=== PATIENT | male | born 2000 | race Caucasian/White ===

== ENCOUNTER 2022-12-19 12:16 | Emergency (ER) | payer MEDICAID, SELFPAY ==
[2022-12-19 12:20] VITALS: BP 132/80; PULSE 85; RESP 20; TEMP 36.8; O2SAT 100
--- NOTE | 2022-12-19 13:14 | W.ED.GENAD ---
Discharge Plan Disposition Patient Disposition: Home Discharge Details Clinical Impression: Facial laceration Primary Care Provider: None,None ED Provider: Darlene Lopez Home Meds and New Rx's Prescriptions: Continued levothyroxine 25 mcg Tablet 25 mcg PO DAILY Discharge Instructions Instructions: Facial Laceration (ED) Additional Instructions: Keep wound clean and dry Sutures removed in 5-6 days Please return with spreading redness, fever, worsening pain Giving you 2 days off of work, you may use this as needed Motrin and Tylenol as needed for pain Stand Alone Forms: Work Release Discharge Data Discharge Date/Time-TO BE ENTERED AT DEPARTURE: 12/19/22 13:51 Medical Decision Making GCS 15, alert and oriented patient with laceration, facial accidental injury from child's Tolerated suture placement without incident, immunizations up-to-date No clinical signs or symptoms consistent with significant head trauma Return precautions reviewed and patient expressed understanding, suture removal in 5 days recommended Medical Records Medical records reviewed: Yes I reviewed the patient's medical records. Lab Data Lab results reviewed: Yes I reviewed the patient's lab results. HPI General Date/Time Provider Initiated Documentation: 12/19/22 12:44. HPI Narrative: This 22-year-old female presents with report of laceration after her son threw a sharp metal toy at the corner of her head. She received a laceration. She states her tetanus is up-to-date. Denies chance or vision change. Denies headache but does have some lightheadedness. She feels anxious. Denies any additional complaints or history of coagulopathy. Related Data Home Medications Medication Instructions Recorded Confirmed levothyroxine 25 mcg tablet 25 mcg PO DAILY 12/19/22 12/19/22 Allergies Allergy/AdvReac Type Severity Reaction Status Date / Time Penicillins Allergy Intermediate Skin Rash Unverified 12/19/22 12:24 General Stated Complaint: Laceration SHANNAN: 4 PFSH All Active Problems (Updated 12/19/22 @ 13:18 by ANA Mcfarlane) Facial laceration (Acute) Social History Smoking/Tobacco Use Status: Never Smoking risk assessment performed?: Yes Alcohol Intake: never Drug use: Never Substance use type: does not use Do you feel safe at home: Yes Do you feel safe in your relationship?: Yes Exam Const General: cooperative, comfortable and no acute distress [facility] Head images: 1. Eyes Pupils: PERRL EOM: EOM intact bilaterally Skin General skin exam: no rashes or lesions noted Neuro General: patient alert and patient oriented x3 Cranial Nerves: CN's II-XI intact bilaterally and tongue midline Cognition: normal cognition Speech: speech normal Gait: normal gait Motor: strength 5/5 throughout Sensory Exam: no sensory deficits noted Other: GCS 15 Course Vital Signs Vital signs: Vital Signs Temperature 36.8 C 12/19/22 12:20 Pulse 85 12/19/22 12:20 Respiratory Rate 20 12/19/22 12:20 Blood Pressure 132/80 12/19/22 12:20 Pulse Oximetry 100 12/19/22 12:20 Temperature 36.8 C 12/19/22 12:20 Temperature Source Oral 12/19/22 12:20 Pulse 85 12/19/22 12:20 Respiratory Rate 20 12/19/22 12:20 Respiratory Effort Normal, Non-Labored 12/19/22 12:25 Blood Pressure 132/80 12/19/22 12:20 Blood Pressure Position Sitting 12/19/22 12:20 Pulse Oximetry 100 12/19/22 12:20 Oxygen Delivery Method Room Air 12/19/22 12:20 Oxygen Flow Rate 0 12/19/22 12:20 Pain Level 4 12/19/22 12:20 Procedures Laceration Laceration 1: Site: scalp Side (If applicable): right Size (cm): 1 Description: irregular Depth: simple, single layer Local Anesthetic: Lidocaine 1% Amount of anesthesia used (mL): 7 Skin layer closed with: nylon and vicryl Size (cm): 4-0
== END 2022-12-19 13:51 | disposition home or self-care (01) ==
PROVIDERS: Emergency Provider Physician Assistant
DX: S01.01XA Laceration without foreign body of scalp, initial encounter (principal); W20.8XXA Other cause of strike by thrown, projected or falling object, initial encounter
CPT/HCPCS: 12011

== ENCOUNTER 2024-01-29 10:36 | Emergency (ER) | payer SELFPAY ==
[2024-01-29 10:39] VITALS: BP 177/80; PULSE 76; RESP 18; TEMP 37.1; O2SAT 100
[2024-01-29 11:15] LABS: Bilirubin Negative (Negative); Blood Negative (Negative); Clarity Clear (Clear); Glucose Negative (Negative); Ketones Negative (Negative); Leukocyte Esterase Negative (Negative); Nitrite Negative (Negative); Urobilinogen 0.2 mg/dL (Up to 0.2)
[2024-01-29 11:28] VITALS: RESP 14
[2024-01-29] MEDS: methylPREDNISolone SUCC 125 MG VIAL IVP (12:08)
[2024-01-29] MEDS: Normal Saline 1,000 ML 1000 ML IV (12:08)
[2024-01-29] MEDS: Ondansetron 4 MG/2 ML VIAL IVP (12:09)
[2024-01-29] MEDS: Prochlorperazine 10 MG/2 ML VIAL IVP (12:09)
[2024-01-29] MEDS: diphenhydrAMINE 50 MG/ML VIAL 25 MG IVP (12:09)
[2024-01-29] MEDS: Acetaminophen 500 MG TAB 1000 MG PO (12:09)
[2024-01-29 12:12] LABS: Abs Immature Grans 0.02 10^3/uL (0.0-0.06); Absolute Basophil Count 0.04 10^3/uL (0.0-0.2); Absolute Monocyte Count 0.55 10^3/uL (0.1-0.8); Absolute Neutrophil Count 5.21 10^3/uL (1.2-6.7); Basophils % 0.5 %; Eosinophils % 2.6 %; HCT 42.8 % (36.0-46.0); HGB 14.3 g/dL (11.2-15.7); Immature Grans % 0.3 %; MCHC 33.4 % (32.0-36.0); MCV 93 fL (80-95); MPV 11.3 fL (8.0-11.0); Neutrophils % 66.6 %; Platelet Count 249 10^3/uL (130-400); RBC 4.62 10^6/uL (3.93-5.22); RDW 13.5 % (11.7-14.6); RDW-SD 46.2 fL; WBC 7.82 10^3/uL (4.4-10.8)
--- NOTE | 2024-01-29 12:32 | DI.CT_ITS ---
Exam(s) CT HEAD WO EXAM: CT HEAD WO CLINICAL HISTORY: vomiting, headache, eval for bleed or mass. TECHNIQUE: Imaging Protocol: Axial computed tomography images with coronal and sagittal reformatted images were created and reviewed COMPARISON: No exams were available for comparison FINDINGS: Ventricles and Extra axial spaces: Normal in size and morphology for the patient's age. Hemorrhage: None. Cerebral parenchyma: No evidence of acute infarct or mass. Midline shift: None. Brainstem/Cerebellum: Normal. Calvarium: Normal. Visualized Paranasal sinuses:Clear. Mastoids: Clear. Soft Tissues: Unremarkable. ORBITS: Unremarkable. PITUITARY: Not enlarged. IMPRESSION: No acute intracranial process. RADIATION DOSE DELIVERED: 848.8mGy.cm Total DLP DATA REPOSITORY: All CT scans at this facility are submitted to the National Radiology Data Registry (NRDR) Dose Index Registry (DIR) with the [employer] (A[employer]). RADIATION OPTIMIZATION: All CT scans at this facility use at least one of these dose optimization te chniques: automated exposure control; mA and/or kV adjustment per patient size (includes targeted exa ms where dose is matched to clinical indication); or iterative reconstruction.
[2024-01-29 12:33] LABS: ALT 25 U/L (14-59); AST 14 U/L (15-37); Albumin 3.6 g/dL (3.4-5.0); Alkaline Phosphatase 87 U/L (46-116); Anion Gap 7.4 mmol/L (3-11); BUN 10 mg/dL (7-18); Bilirubin, Total 0.3 mg/dL (0.2-1.0); CO2 27.6 mmol/L (21.0-32.0); CREATININE 0.7 mg/dL (0.55-1.02); Calcium 9.5 mg/dL (8.5-10.1); Chloride 107 mmol/L (98-107); Estimated GFR 124.55 (mL/min/1.73m2); Glucose 93 mg/dL (74-106); Lipase 21 U/L (16-77); Potassium 3.9 mmol/L (3.5-5.1); Sodium 142 mmol/L (136-145); Total Protein 7.2 g/dL (6.4-8.2)
--- NOTE | 2024-01-29 13:39 | W.ED.GENAD ---
Discharge Plan Disposition Patient Disposition: Home Condition: Good Discharge Details Clinical Impression: Vertigo, Dental infection, Nausea & vomiting Primary Care Provider: Unknown,Unknown ED Provider: Tirso Carpenter Home Meds and New Rx's Prescriptions: New ondansetron 4 mg tablet,disintegrating 4 mg PO Q8H Qty: 20 0RF meclizine 25 mg tablet 25 mg PO DAILY PRNQty: 20 0RF clindamycin HCl 150 mg capsule 450 mg PO TID 7 Days Qty: 63 0RF No Action levothyroxine 25 mcg Tablet 25 mcg PO DAILY Discharge Instructions Instructions: Dental Abscess (ED), Vertigo (ED), Acute Nausea and Vomiting (ED) Additional Instructions: At this time you have evidence of peripheral vertigo. Your CT scan is negative for any signs of stroke. Please take the meclizine to help with the dizziness. Please take the Zofran as needed for nausea. He also have a mild dental infection. The definitive treatment for this is dental surgical management. Please take the antibiotic in the meantime to manage the infection. If you notice any worsening of your symptoms, or any new symptoms such as vomiting, diarrhea, fever, chills, shortness of breath, chest pain, numbness, weakness, or fainting , please return immediately to the emergency department for reevaluation. Please follow up with your primary care provider as soon as possible for reassessment and reevaluation. As always, it was a pleasure participating in your medical care today. HPI General Date/Time Provider Initiated Documentation: 01/29/24 11:15. HPI Narrative: 23-year-old female with a past medical history of known right upper posterior dental infection, presents today for evaluation of mild headache, mild dizziness and lightheadedness, mild nausea and occasional vomiting. Patient states that symptoms been going on for the last 2 to 3 weeks. About 2 weeks ago she did fall and hit her head hit her right brow which developed a black eye. She has also been having pain in her right upper tooth which has been persistent but she has not been able to see a dentist. 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 She has had a concussion. She denies any significant vision changes otherwise. She denies any fever or chills. She does feel slightly dehydrated secondary to the intermittent daily vomiting. She denies any numbness or tingling. No other complaints at this time. No abdominal pain or epigastric discomfort. No other complaints at this time. She does admit to ringing in her left ear which has been somewhat persistent over the last few weeks. Related Data Home Medications Medication Instructions Recorded Confirmed levothyroxine 25 mcg tablet 25 mcg PO DAILY 12/19/22 01/29/24 clindamycin HCl 150 mg capsule 450 mg (3 x 150 mg) PO TID 7 days 01/29/24 #63 caps meclizine 25 mg tablet 25 mg PO DAILY PRN #20 tabs 01/29/24 ondansetron 4 mg disintegrating 4 mg PO Q8H #20 tabs 01/29/24 tablet Previous Rx's Medication Instructions Recorded clindamycin HCl 150 mg capsule 450 mg (3 x 150 mg) PO TID 7 days 01/29/24 #63 caps meclizine 25 mg tablet 25 mg PO DAILY PRN #20 tabs 01/29/24 ondansetron 4 mg disintegrating 4 mg PO Q8H #20 tabs 01/29/24 tablet Allergies Allergy/AdvReac Type Severity Reaction Status Date / Time Penicillins Allergy Intermediate Skin Rash Unverified 01/29/24 10:42 vitamin c Allergy Severe Swelling/Ed Uncoded 01/29/24 10:42 dianne General Stated Complaint: Dizzy/Sync SHANNAN: 3 Review of Systems All systems reviewed & are unremarkable except as noted in HPI and below Exam Narrative Exam Narrative: 1.Const: Well-nourished, Well-developed, appearing stated age 2.Eyes: PERRL, no conjunctival injection, and symmetrical lids. 3.ENT: Atraumatic external nose and ears. Dry MM. Neck: Symmetric, trachea midline, No thyromegaly. Patient demonstrates good movement of cervical neck. There is no nuchal rigidity, no nuchal tenderness. Patient is able to flex the neck without any difficulty or significant pain. Negative Kernig's and Brudzinski sign. Ears demonstrate no evidence of effusion, otitis media, or other abnormality. 4.CVS: +S1/S2, No murmurs or gallops. Peripheral pulses 2+ and equal in all extremities. Brisk capillary refill in all extremities. 5.RESP: Unlabored respiratory effort. Clear to auscultation bilaterally. No wheezes rales or rhonchi 6.GI: Soft, Nontender/Nondistended, No hepatosplenomegaly. No guarding or rebound. 7.MSK: Normocephalic/Atraumatic, Extremities w/o deformity or ttp No cyanosis or clubbing, Normal movement of all extremities 8.Skin: Warm, Dry. No rashes or lesions. 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 Sensation grossly intact, no focal neurologic deficits. All 6 cardinal planes of vision are fully intact. No evidence of rotatory or vertical nystagmus. The patient demonstrated a normal [id number]-mowm-vnrxgw, good dexterity. There was no evidence of dysdiadochokinesia. Patient was able to ambulate without difficulty. There was no wide-based gait. Romberg testing was normal. Zwzn-[id number]-wqik testing was normal. Sensation was intact bilaterally as well as muscle strength bilaterally for all extremities. Patient was able to verbalize butter cup with no slurring, or miss pronunciation. 10.Psych: (AAO) x3. Appropriate mood and affect Course Vital Signs Vital signs: Vital Signs Temperature 37.1 C 01/29/24 10:39 Pulse 76 01/29/24 10:39 Respiratory Rate 18 01/29/24 10:39 Blood Pressure 177/80 H 01/29/24 10:39 Pulse Oximetry 100 01/29/24 10:39 Temperature 37.1 C 01/29/24 10:39 Pulse 76 01/29/24 10:39 Respiratory Rate 14 01/29/24 11:28 Respiratory Effort Normal, Non-Labored 01/29/24 11:28 Respiratory Depth Normal 01/29/24 11:28 Respiratory Pattern Normal 01/29/24 11:28 Blood Pressure 177/80 H 01/29/24 10:39 Blood Pressure Position Sitting 01/29/24 10:39 Pulse Oximetry 100 01/29/24 10:39 Oxygen Delivery Method Room Air 01/29/24 10:39 Oxygen Flow Rate 0 01/29/24 10:39 Lab/Test Results Lab/Test Results: Laboratory Tests Range/Units 01/29/24 01/29/24 11:03 11:58 WBC (4.4-10.8) 10^3/uL 7.82 RBC (3.93-5.22) 10^6/uL 4.62 Hgb (11.2-15.7) g/dL 14.3 Hct (36.0-46.0) % 42.8 MCV (80-95) fL 93 MCH (27.0-33.0) pg 31.0 MCHC (32.0-36.0) % 33.4 RDW (11.7-14.6) % 13.5 Plt Count (130-400) 10^3/uL 249 MPV (8.0-11.0) fL 11.3 H Immature Gran % % 0.3 Neutrophils % % 66.6 Lymphocytes % % 23.0 Monocytes % % 7.0 Eosinophils % % 2.6 Basophils % % 0.5 Nucleated RBC % (0.0-0.3) % 0.0 Absolute Neutrophils (1.2-6.7) 10^3/uL 5.21 Absolute Lymphocytes (1.2-3.4) 10^3/uL 1.80 Absolute Monocytes (0.1-0.8) 10^3/uL 0.55 Absolute Eosinophils (0.0-0.7) 10^3/uL 0.20 Absolute Basophils (0.0-0.2) 10^3/uL 0.04 Sodium (136-145) mmol/L 142 Potassium (3.5-5.1) mmol/L 3.9 Chloride (98-107) mmol/L 107 Carbon Dioxide (21.0-32.0) mmol/L 27.6 Anion Gap (3-11) mmol/L 7.4 BUN (7-18) mg/dL 10 Creatinine (0.55-1.02) mg/dL 0.7 Est GFR (CKD-EPI 2020) (mL/min/1.73m2) 124.55 Glucose (74-106) mg/dL 93 Calcium (8.5-10.1) mg/dL 9.5 Total Bilirubin (0.2-1.0) mg/dL 0.3 AST (15-37) U/L 14 L ALT (14-59) U/L 25 Alkaline Phosphatase (46-116) U/L 87 Total Protein (6.4-8.2) g/dL 7.2 Albumin (3.4-5.0) g/dL 3.6 Lipase (16-77) U/L 21 Urine Color (Yellow) Yellow Urine Clarity (Clear) Clear Urine pH (5-8) 7.0 Ur Specific [place] (1.005-1.025) 1.020 Urine Protein (Neg-Trace) mg/dL Negative Urine Ketones (Negative) mg/dL Negative Urine Blood (Negative) Negative Urine Nitrite (Negative) Negative Urine Bilirubin (Negative) Negative Urine Urobilinogen (Up to 0.2) mg/dL 0.2 Ur Leukocyte Esterase (Negative) Negative Urine Glucose (Negative) mg/dL Negative POC- Test(urine) Negative Medical Decision Making 23-year-old female with a past medical history of known right upper posterior dental infection, presents today for evaluation of mild headache, mild dizziness and lightheadedness, mild nausea and occasional vomiting. Patient states that symptoms been going on for the last 2 to 3 weeks. About 2 weeks ago she did fall and hit her head hit her right brow which developed a black eye. She has also been having pain in her right upper tooth which has been persistent but she has not been able to see a dentist. 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 She has had a concussion. She denies any significant vision changes otherwise. She denies any fever or chills. She does feel slightly dehydrated secondary to the intermittent daily vomiting. She denies any numbness or tingling. No other complaints at this time. No abdominal pain or epigastric discomfort. No other complaints at this time. She does admit to ringing in her left ear which has been somewhat persistent over the last few weeks. Exam demonstrates well-appearing female, dry mucous membranes though, no neurologic deficits. Right upper molar demonstrates evidence of dental carry, no periapical abscess. No evidence of Ludewig's angina, oropharyngeal compromise. No pain at McBurney's point, negative Cam sign, nonsurgical abdomen. Differential is broad, but includes subdural hematoma, brain mass, more likely viral etiology, peripheral vertigo, M?ni?re's, gastroenteritis, migraine headache, or pancreatitis. Will rehydrate the patient, give a GI cocktail, rehydrate, check for these concerning etiologies, get a CT scan of the head, monitor closely and reassess. Symptoms at this time appear clinically inconsistent with meningitis, encephalitis, or acute surgical etiology. 2 PM Laboratory workup has returned, normal electrolytes, no white count bandemia or left shift. CT scan of the head negative for acute process. Patient's nausea has notably improved, she feels well-hydrated. She still has mild dizziness but shows no signs of ataxia imbalance or cerebellar symptoms consistent with cerebellar stroke. I suspect patient has mild peripheral vertigo as a current cause of her symptomatology. Patient feels well and is requesting discharge home. I do feel that this is reasonable. We will give meclizine for dizziness, because of the penicillin allergy we will give clindamycin for the dental issue. Will recommend close follow-up with dentist. With no evidence of tumor or mass stroke or other abnormality on CT imaging, I do not see an emergent indication at this time for MRI. Discussed red flags for which to return. I have extensively reviewed the treatment plan and discharge instructions with the patient and their family. I have addressed all patient concerns at this time. The patient and family was made aware of what symptoms to monitor for that would warrant a return to the emergency department. Discussed the plan with the patient and family, they demonstrate verbal understanding and agreement with our assessment and plan at this time. The documentation in this chart was dictated using [employer] dictation software. Please excuse any dictation errors. FINDINGS: Ventricles and Extra axial spaces: Normal in size and morphology for the patient's age. Hemorrhage: None. Cerebral parenchyma: No evidence of acute infarct or mass. Midline shift: None. Brainstem/Cerebellum: Normal. Calvarium: Normal. Visualized Paranasal sinuses:Clear. Mastoids: Clear. Soft Tissues: Unremarkable. ORBITS: Unremarkable. PITUITARY: Not enlarged. IMPRESSION: No acute intracranial process. Quality:SDOH Health Related Social Needs: No Data to Display PFSH All Active Problems Nausea & vomiting (Acute) Dental infection (Acute) Vertigo (Acute) Social History Smoking/Tobacco Use Status: Former Tobacco Use Smoking risk assessment performed?: Yes Alcohol Intake: never Drug use: Never Substance use type: does not use Do you feel safe at home: Yes Do you feel safe in your relationship?: Yes
[2024-01-29 13:51] VITALS: BP 137/59; PULSE 59; RESP 16; O2SAT 99
== END 2024-01-29 13:51 | disposition home or self-care (01) ==
PROVIDERS: Nurse Practitioner Family; Emergency Provider Student in an Organized Health Care Education/Training Program
DX: R42 Dizziness and giddiness (principal); R11.0 Nausea; K04.7 Periapical abscess without sinus; E06.3 Autoimmune thyroiditis; Z87.891 Personal history of nicotine dependence
CPT/HCPCS: 36415; 80053; 81025; 83690; 96361; 96374; 96375; 99284; 70450; 81003; 85025; J0780; J1200; J2405; J2919

== ENCOUNTER 2024-08-24 08:22 | Emergency (ER) | payer MEDICAID, SELFPAY ==
[2024-08-24] VITALS (12 sets, daily range): BP systolic 124–161; BP diastolic 79–104; PULSE 63–99; RESP 11–25; TEMP 36.4–36.9; O2SAT 96–100
--- NOTE | 2024-08-24 08:30 | RT.EKG_ITS ---
APPROVED REPORT Exam: Resting ECG Reason for Exam: syncope/dizzy Patient Location: E HR:81 bpm ECG Measurements Heart Rate [address] 145 P 38 QRSd 90 QRS 64 QT 365 T 32 QTc 424 Conclusion Sinus rhythm, rate 81 No interval abnormalities No STEMI No priors available for comparison
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
[2024-08-24 09:05] LABS: Abs Immature Grans 0.13 10^3/uL (0.0-0.06); Absolute Basophil Count 0.05 10^3/uL (0.0-0.2); Absolute Lymphocyte Count 3.62 10^3/uL (1.2-3.4); Absolute Monocyte Count 1.15 10^3/uL (0.1-0.8); Absolute Neutrophil Count 11.75 10^3/uL (1.2-6.7); Basophils % 0.3 %; Eosinophils % 1.2 %; HCT 44.2 % (36.0-46.0); HGB 14.7 g/dL (11.2-15.7); Immature Grans % 0.8 %; Lymphocytes % 21.4 %; MCH 30.9 pg (27.0-33.0); MCHC 33.3 % (32.0-36.0); MCV 93 fL (80-95); MPV 10.5 fL (8.0-11.0); Monocytes % 6.8 %; Neutrophils % 69.5 %; Platelet Count 251 10^3/uL (130-400); RBC 4.76 10^6/uL (3.93-5.22); RDW 13.8 % (11.7-14.6); WBC 16.91 10^3/uL (4.4-10.8)
[2024-08-24] MEDS: Ondansetron 4 MG/2 ML VIAL IVP (09:12)
[2024-08-24] MEDS: Ketorolac 15 MG/ML VIAL IVP (09:13)
[2024-08-24 09:27] LABS: COVID-19 PCR Negative (Negative); Influenza A PCR Negative (Negative); Influenza B PCR Negative (Negative); RSV PCR Negative (Negative); Source Nasopharynx
[2024-08-24 09:38] LABS: ALT 25 U/L (14-59); AST 15 U/L (15-37); Albumin 3.6 g/dL (3.4-5.0); Alkaline Phosphatase 84 U/L (46-116); Anion Gap 5.9 mmol/L (3-11); BUN 10 mg/dL (7-18); Bilirubin, Total 0.67 mg/dL (0.2-1.0); CO2 29.1 mmol/L (21.0-32.0); CREATININE 0.9 mg/dL (0.55-1.02); Calcium 9.8 mg/dL (8.5-10.1); Chloride 107 mmol/L (98-107); Estimated GFR 91.55 (mL/min/1.73m2); Glucose 86 mg/dL (74-106); Lipase 16 U/L (<78); Magnesium 1.9 mg/dL (1.8-2.4); Potassium 3.8 mmol/L (3.5-5.1); Sodium 142 mmol/L (136-145)
[2024-08-24 09:52] LABS: Bilirubin Negative (Negative); Blood Negative (Negative); Clarity Sl Cloudy (Clear); Glucose Negative (Negative); Ketones Trace mg/dL (Negative); Leukocyte Esterase Negative (Negative); Nitrite Negative (Negative); Specific Gravity 1.025 (1.005-1.025); Urobilinogen 0.2 mg/dL (Up to 0.2); pH 6.5 (5-8)
--- NOTE | 2024-08-24 09:56 | DI.RAD_ITS ---
Exam(s) XR CHEST 2V PA LATERAL EXAM: XR CHEST 2V PA LATERAL CLINICAL HISTORY: Cough, R side pain TECHNIQUE: 2D digital imaging was performed. Two views. COMPARISON: No exams were available for comparison FINDINGS: HEART: Normal size. Aorta: Not dilated. PULMONARY VASCULATURE: Normal. MEDIASTINUM: Unremarkable. LUNGS: Clear. PLEURAL SPACE: No pleural effusion or pneumothorax. BONE:Unremarkable for age. SOFT TISSUES: Unremarkable. IMPRESSION: No acute abnormality. DATA REPOSITORY: RADIATION DOSE DELIVERED:
== END 2024-08-24 10:45 | disposition home or self-care (01) ==
PROVIDERS: Emergency Provider Emergency Medicine
DX: R55 Syncope and collapse; E06.3 Autoimmune thyroiditis; I10 Essential (primary) hypertension; J06.9 Acute upper respiratory infection, unspecified; Z87.891 Personal history of nicotine dependence
CPT/HCPCS: 36415; 76705; 80053; 81025; 83690; 87637; 93005; 96374; 96375; 99285; 71046; 81003; 83735; 85025; 93010; 99284; J1885; J2405